=== PATIENT | female | born 1995 | race African-American/Black ===

== ENCOUNTER 2017-11-24 01:29 | Inpatient (IN) | payer OTHER ==
[2017-11-24] MEDS: IV NORMAL SALINE 1000ML BAG 1,000 ML IV ×2 (02:52→04:50)
[2017-11-24 02:56] LABS: ADD MAN DIFF? NO
[2017-11-24 03:01] LABS: BASO # 0.1 x10^3/uL (0.0-0.2); BASO % 1 % (0-3); EOS # 0.1 x10^3/uL (0.0-0.7); EOS % 1 % (0-3); HEMATOCRIT 40.8 % (36.0-47.0); HEMOGLOBIN 13.8 g/dL (12.0-15.5); LYMPH # 1.9 x10^3/uL (1.0-4.8); LYMPH % 18 % (24-48); MEAN CORPUSCULAR HEMOGLOBIN 29 pg (25-35); MEAN CORPUSCULAR HGB CONC 34 g/dL (31-37); MEAN CORPUSCULAR VOLUME 86 fL (79-100); MONO # 0.9 x10^3/uL (0.0-1.1); MONO % 9 % (0-9); NEUT # 7.5 x10^3uL (1.8-7.7); NEUT % 71 % (31-73); PLATELET COUNT 244 x10^3/uL (140-400); RED BLOOD COUNT 4.76 x10^6/uL (3.50-5.40); WHITE BLOOD COUNT 10.6 x10^3/uL (4.0-11.0)
[2017-11-24 03:07] LABS: ANION GAP 6 (6-14); BLOOD UREA NITROGEN 10 mg/dL (7-20); CALCIUM 8.8 mg/dL (8.5-10.1); CARBON DIOXIDE 27 mmol/L (21-32); CHLORIDE 105 mmol/L (98-107); CREATININE 0.8 mg/dL (0.6-1.0); GFR 106.6; GLUCOSE 106 mg/dL (70-99); INR 1.1 (0.8-1.1); PARTIAL THROMBOPLASTIN TIME 28 SEC (24-38); POTASSIUM 3.3 mmol/L (3.5-5.1); PROTHROMBIN TIME PATIENT 13.6 SEC (11.7-14.0); SODIUM 138 mmol/L (136-145)
[2017-11-24 05:09] LABS: ADD MAN DIFF? NO
[2017-11-24 05:13] LABS: BASO # 0.1 x10^3/uL (0.0-0.2); BASO % 0 % (0-3); EOS # 0.1 x10^3/uL (0.0-0.7); EOS % 0 % (0-3); HEMATOCRIT 35.1 % (36.0-47.0); HEMOGLOBIN 11.7 g/dL (12.0-15.5); LYMPH # 2.8 x10^3/uL (1.0-4.8); LYMPH % 18 % (24-48); MEAN CORPUSCULAR HEMOGLOBIN 29 pg (25-35); MEAN CORPUSCULAR HGB CONC 33 g/dL (31-37); MEAN CORPUSCULAR VOLUME 86 fL (79-100); MONO # 1.1 x10^3/uL (0.0-1.1); MONO % 7 % (0-9); NEUT # 11.3 x10^3uL (1.8-7.7); NEUT % 74 % (31-73); PLATELET COUNT 270 x10^3/uL (140-400); RED BLOOD COUNT 4.08 x10^6/uL (3.50-5.40); RED CELL DISTRIBUTION WIDTH 14.4 % (11.5-14.5); WHITE BLOOD COUNT 15.3 x10^3/uL (4.0-11.0)
[2017-11-24] MEDS ORDERED: ONDANSETRON PF 4 MG/2 ML VIAL. IV ×3 (06:00→07:00)
[2017-11-24] MEDS ORDERED: MORPHINE SULFATE 4 MG/ML DISP.SYRIN. IV (06:00)
[2017-11-24] MEDS ORDERED: PROPOFOL 20 ML IV (06:19)
[2017-11-24] MEDS ORDERED: SEVOFLURANE 16 TO 30 MINUTES. IH (06:19)
[2017-11-24] MEDS ORDERED: OXYTOCIN 10 UNIT/ML VIAL. (06:19)
[2017-11-24] MEDS ORDERED: ONDANSETRON PF 4 MG/2 ML VIAL. (06:19)
[2017-11-24] MEDS ORDERED: DEXAMETHASONE SOD PHOS 20 MG/5 ML VIAL. (06:19)
[2017-11-24] MEDS: IV RINGERS,LACTATED 1000ML 1,000 ML IV (06:29)
[2017-11-24] MEDS ORDERED: MORPHINE SULFATE 2 MG/ML DISP.SYRIN. IV (06:30)
[2017-11-24] MEDS ORDERED: LIDOCAINE 1% PF 2 ML VIAL. ID (06:30)
[2017-11-24] MEDS ORDERED: PROCHLORPERAZINE 10 MG/2 ML VIAL. IV (06:30)
[2017-11-24] MEDS ORDERED: fentaNYL PF VIAL 100 MCG/2 ML VIAL IV ×2 (06:30)
[2017-11-24] MEDS ORDERED: IV NORMAL SALINE 1000ML BAG 1,000 ML IV (06:51)
[2017-11-24] MEDS ORDERED: DEXTROSE 50% 25 GM / 50ML DISP.SYRIN. IV (07:00)
[2017-11-24] MEDS ORDERED: diphenhydrAMINE HCL 25 MG CAPSULE PO (07:00)
[2017-11-24] MEDS ORDERED: METOCLOPRAMIDE HCL 10 MG/2 ML VIAL. IV (07:00)
[2017-11-24] MEDS ORDERED: oxyCODONE/APAP 5/325 1 TAB TABLET PO (07:00)
[2017-11-24] MEDS ORDERED: 0.9 % SODIUM CHLORIDE 10 ML DISP.SYRIN. IV (07:00)
[2017-11-24] MEDS ORDERED: MAG HYDROX/ALUMINUM HYD/SIMETH 30 ML ORAL.SUSP PO (07:00)
[2017-11-24] MEDS ORDERED: ceFAZolin SODIUM 1 GM in IV DEXTROSE 5% 50 ML IV (07:00)
[2017-11-24] MEDS: ESTROGENS, CONJUGATED 25 MG VIAL IV ×2 (09:39→15:23)
[2017-11-24] MEDS: ceFAZolin SODIUM IV Push 1 GM VIAL. IVP ×2 (10:34→15:36)
[2017-11-24] MEDS: oxyCODONE/APAP 5/325 1 TAB TABLET PO (10:42)
[2017-11-25 14:34] LABS: CHLAMYDIA PROBE Negative (Negative); GC PROBE Negative (Negative)
== END 2017-11-24 17:34 | disposition home or self-care (01) | DRG 745 ==
LOC: ER 01:29 → 3 NORTH 05:45
PROC: 0UDB7ZZ Extraction of Endometrium, Via Natural or Artificial Opening (ICD-10-PCS; principal; 2017-11-24 06:31)
DX: N93.9 Abnormal uterine and vaginal bleeding, unspecified (principal)
CPT/HCPCS: 36415; 76856; 80048; 84702; 85025; 85610; 85730; 86850; 86900; 86901; 87491; 87591; 96360; 99285-25; C1769; J0690; J1100; J1410; J2405; J2590; J2704; J7030; J7120; Q0111

== ENCOUNTER 2018-01-02 17:19 | Emergency (ER) | payer OTHER ==
[2018-01-02] MEDS: ACETAMINOPHEN 500 MG TABLET PO (17:45)
[2018-01-02] MEDS: IV NORMAL SALINE 1000ML BAG 1,000 ML IV ×2 (17:45→20:00)
[2018-01-02] MEDS: MORPHINE SULFATE 4 MG/ML DISP.SYRIN. IV (17:45)
[2018-01-02 18:13] LABS: ADD MAN DIFF? NO
[2018-01-02 18:20] LABS: BASO # 0.1 x10^3/uL (0.0-0.2); BASO % 1 % (0-3); EOS % 0 % (0-3); HEMOGLOBIN 11.6 g/dL (12.0-15.5); LYMPH # 1.4 x10^3/uL (1.0-4.8); LYMPH % 12 % (24-48); MEAN CORPUSCULAR HEMOGLOBIN 26 pg (25-35); MEAN CORPUSCULAR HGB CONC 32 g/dL (31-37); MEAN CORPUSCULAR VOLUME 79 fL (79-100); MONO # 0.4 x10^3/uL (0.0-1.1); MONO % 3 % (0-9); NEUT # 9.9 x10^3uL (1.8-7.7); NEUT % 84 % (31-73); PLATELET COUNT 354 x10^3/uL (140-400); RED BLOOD COUNT 4.54 x10^6/uL (3.50-5.40); RED CELL DISTRIBUTION WIDTH 15.3 % (11.5-14.5); WHITE BLOOD COUNT 11.8 x10^3/uL (4.0-11.0)
[2018-01-02 18:37] LABS: TROPONINI < 0.017 ng/mL (0.000-0.055)
[2018-01-02 18:38] LABS: D-DIMER 2.99 ug/mlFEU (0.00-0.50)
[2018-01-02 18:45] LABS: ANION GAP 13 (6-14); BLOOD UREA NITROGEN 13 mg/dL (7-20); BUN/CREATININE RATIO 13 (6-20); CALCIUM 8.9 mg/dL (8.5-10.1); CARBON DIOXIDE 23 mmol/L (21-32); CHLORIDE 104 mmol/L (98-107); GFR 82.4; GLUCOSE 155 mg/dL (70-99); POTASSIUM 4.1 mmol/L (3.5-5.1); SODIUM 140 mmol/L (136-145)
[2018-01-02 18:50] LABS: ALBUMIN 3.8 g/dL (3.4-5.0); ALBUMIN/GLOBULIN RATIO 0.9 (1.0-1.7); ALK PHOS 101 U/L (46-116); ALT (SGPT) 40 U/L (14-59); AST (SGOT) 34 U/L (15-37); TOTAL BILIRUBIN 0.3 mg/dL (0.2-1.0)
[2018-01-02 19:38] LABS: URINE HCG POC HCG NEGATIVE (Negative)
[2018-01-02] MEDS ORDERED: CONTRAST GIVEN. MC (19:45)
[2018-01-02 19:51] LABS: BILIRUBIN,URINE NEGATIVE (NEG); CLARITY,URINE CLEAR; COLOR,URINE YELLOW; GLUCOSE,URINE NEGATIVE (NEG); NITRITE,URINE NEGATIVE (NEG); PH,URINE 8.5; PROTEIN,URINE NEGATIVE (NEG-TRACE)
[2018-01-02] MEDS: IOHEXOL 300 MG/ML 100ML VIAL. IV (20:02)
[2018-01-02 20:11] LABS: BACTERIA,URINE FEW /HPF (0-FEW); SQUAMOUS EPITHELIAL CELL,UR MANY /LPF; TRICHOMONAS,URINE PRESENT; WBC,URINE >40 /HPF (0-4)
[2018-01-02] MEDS: AZITHROMYCIN 250 MG TABLET. PO (21:06)
[2018-01-02] MEDS: metroNIDAZOLE 500 MG TABLET PO (21:09)
== END 2018-01-02 22:04 | disposition home or self-care (01) ==
LOC: ER 22:04
DX: N39.0 Urinary tract infection, site not specified (principal); B34.8 Other viral infections of unspecified site; G43.909 Migraine, unspecified, not intractable, without status migrainosus
CPT/HCPCS: 36415; 71045; 71275; 80053; 81001; 81025; 83605; 84484; 85025; 85379; 87040; 93005; 96365; 96375; 99285-25; J0690; J2270; J7030; Q0144; Q9967